=== PATIENT | female | born 1960 | race African-American/Black ===

== ENCOUNTER 2024-03-19 17:50 | Emergency (ER) | payer MEDICAID, OTHER ==
[~2024-03-19] VITALS: Ht 167.6 cm; Wt 77.0 kg
[~2024-03-19 17:50] MED LIST: ALBU18HF2 IH; AMLO10TA4 PO; FLUT1DIS3 IH; OMEP20CA4 PO
[2024-03-19 18:03] VITALS: O2SAT 100
[2024-03-19] MEDS: KETOROLAC 30MG/ML VIAL IM ONE (18:45)
[2024-03-19] MEDS ORDERED: KETO10TA2 MT (20:07)
[2024-03-19 20:28] VITALS: BP 131/74; PULSE 81; RESP 16; TEMP 36.78072; O2SAT 100
== END 2024-03-19 20:29 | disposition home or self-care (01) ==
LOC: ER 17:50
DX: M25.552 Pain in left hip (principal); J45.909 Unspecified asthma, uncomplicated; K21.9 Gastro-esophageal reflux disease without esophagitis; I10 Essential (primary) hypertension; Z90.49 Acquired absence of other specified parts of digestive tract; Z79.899 Other long term (current) drug therapy
CPT/HCPCS: 99283; 73502; 96372; J1885